=== PATIENT | male | born 1990 | race African-American/Black ===

== ENCOUNTER → 2018-05-03 | Outpatient (REF) | payer OTHER ==
[~2018-05-03] MED LIST: ADV500INH INH; ALBU17IN INH; ALBU17IN2 INH; AMIT100TA PO; AMIT25TA PO; AMIT50TA PO; AMIT75TA PO; AMLO10TA5 PO; AMLO25TA PO; ESCI10TA2 PO; FISH1000 PO; FLOM0.4C39 PO; FLON1SPR; FLUT1SPR2; LEXA1TAB PO; LIDO1CRE14 EX; MELA3TAB49 PO; MINI1CAP PO; MINI2CAP PO; NORCOTAB PO; OMEP40CA2 PO; PERCOCET PO; PRAZ1CAP PO; PRAZ2CAP PO; PRIL20CA9 PO; PROM50TA4 PO; REFR1DRO8 OU; TOPA50TA8 PO; TOPI200T7 PO; TRAZ-163 PO; VITA-182 PO; VITA100066 PO; VITA200038 PO; VOLT1GEL15 TD; ZANA4CAP PO; [UNRECOGNIZED DRUG - CODE] OU; [UNRECOGNIZED DRUG - OTHER] OU
[2018-05-03 17:46] LABS: SEMEN APPEARANCE OPAQUE (OPAQUE)
[2018-05-03 17:47] LABS: SEMEN VISCOSITY LIQUID (LIQUID); SEMEN VOLUME 2.3 ml (4.0-5.0); SEMEN pH 7.5 (7.0-8.0); SPERM CONCENTRATION 24.4 M/ml (>=15.0); WBC CONCENTRATION <=1 M/ml (<=1 M/ml)
== END ==
LOC: M LAB REF 16:46
PROVIDERS: ATTEND Specialist
DX: N46.9 Male infertility, unspecified (principal)

== ENCOUNTER 2018-05-09 16:01 | Emergency (ER) | payer OTHER, SELFPAY ==
[~2018-05-09] VITALS: Ht 188 cm; Wt 131.8 kg
[~2018-05-09 16:01] MED LIST changes: -NORCOTAB PO
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
[2018-05-09] MEDS ORDERED: HYDR-3715 PO (18:27)
[2018-05-09 19:03] VITALS: BP 152/92
== END 2018-05-09 19:20 | disposition home or self-care (01) ==
LOC: M ED 16:01
DX: S62.314A Displaced fracture of base of fourth metacarpal bone, right hand, initial encounter for closed fracture (principal); S62.610A Displaced fracture of proximal phalanx of right index finger, initial encounter for closed fracture; Y04.2XXA Assault by strike against or bumped into by another person, initial encounter; Y92.89 Other specified places as the place of occurrence of the external cause; I10 Essential (primary) hypertension; J45.909 Unspecified asthma, uncomplicated; F33.9 Major depressive disorder, recurrent, unspecified; F41.9 Anxiety disorder, unspecified; F43.10 Post-traumatic stress disorder, unspecified; Z79.899 Other long term (current) drug therapy; Z88.8 Allergy status to other drugs, medicaments and biological substances

== ENCOUNTER 2018-06-27 20:04 | Emergency (ER) | payer OTHER, SELFPAY ==
[~2018-06-27] VITALS: Ht 190.5 cm; Wt 120.5 kg
[~2018-06-27 20:04] MED LIST changes: +NORCOTAB PO
[2018-06-27] MEDS ORDERED: blood pressure med (20:25)
[2018-06-27] MEDS ORDERED: ACETAMINOPHEN 325 MG TAB PO ONE (21:30)
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
[2018-06-27 23:31] VITALS: BP 130/78
== END 2018-06-27 23:52 | disposition home or self-care (01) ==
LOC: M ED 20:04 → EDBD 20:04 → M ED 23:52
DX: S16.1XXA Strain of muscle, fascia and tendon at neck level, initial encounter (principal); V49.40XA Driver injured in collision with unspecified motor vehicles in traffic accident, initial encounter; Y92.410 Unspecified street and highway as the place of occurrence of the external cause; J45.909 Unspecified asthma, uncomplicated; F43.10 Post-traumatic stress disorder, unspecified; F41.9 Anxiety disorder, unspecified; F32.9 Major depressive disorder, single episode, unspecified; Z88.8 Allergy status to other drugs, medicaments and biological substances; Z79.899 Other long term (current) drug therapy